=== PATIENT | male | born 1955 | race African-American/Black ===

== ENCOUNTER 2023-04-04 08:17 | Outpatient (CLI) | payer MEDICARE | END 2023-04-04 08:18 | disposition home or self-care (01) | LOC: BICCT 08:17 | PROVIDERS: ATTEND Family Medicine | DX: Z12.2 Encounter for screening for malignant neoplasm of respiratory organs (principal); Z13.6 Encounter for screening for cardiovascular disorders; F17.210 Nicotine dependence, cigarettes, uncomplicated; J98.4 Other disorders of lung; I70.0 Atherosclerosis of aorta; I71.40 Abdominal aortic aneurysm, without rupture, unspecified | CPT/HCPCS: 71271; 76775 ==

== ENCOUNTER 2023-05-09 08:30 | Outpatient (CLI) | payer MEDICARE ==
[2023-05-09] MEDS ORDERED: Iopamidol 370 76% 100 ML VIAL ONE (13:33)
== END 2023-05-09 08:31 | disposition home or self-care (01) ==
LOC: BICCT 08:30
PROVIDERS: ATTEND Family Medicine
DX: I77.811 Abdominal aortic ectasia (principal); I74.09 Other arterial embolism and thrombosis of abdominal aorta
CPT/HCPCS: 74175; 82565